=== PATIENT | female | born 1965 | race Caucasian/White ===

== ENCOUNTER 2018-03-05 16:01 | Inpatient (IN) | payer MEDICAID, OTHER ==
[~2018-03-05] VITALS: Ht 170.2 cm; Wt 154.0 kg
[~2018-03-05 16:01] MED LIST: CLON-570 PO; FLUO-191 PO; HYDR25TA PO; IMAT100T PO; LOSA50TA37 PO; METF500T6 PO; NYST15OI TP; OXYB5 PO; SITA25 PO
[2018-03-05 17:03] LABS: EOSINOPHILS % (AUTO) 2.3 % (1.0-6.0); HEMATOCRIT 39.3 % (36-46); HEMOGLOBIN 13.2 g/dL (12.0-16.0); LYMPHOCYTES # (AUTO) 2.6 K/uL (1.0-4.8); LYMPHOCYTES % (AUTO) 41.2 % (22.0-44.0); MEAN CORPUSCULAR HEMOGLOBIN 29.5 pg (26.0-34.0); MEAN CORPUSCULAR HGB CONC 33.7 G/dL (31.0-37.0); MEAN CORPUSCULAR VOLUME 88 fL (80-100); MONOCYTES # (AUTO) 0.5 K/uL (0.1-1.0); MONOCYTES % (AUTO) 7.6 % (2.0-9.0); NEUTROPHILS % (AUTO) 47.9 % (40.0-70.0); PLATELET COUNT (AUTO) 214 K/uL (150-450); RED BLOOD CELL COUNT(AUTO) 4.48 MIL/uL (4.00-5.20); RED CELL DISTRIBUTION WIDTH 14.9 % (11.5-14.5)
[2018-03-05 17:12] LABS: ANION GAP 9 mmol/L (8-16); CALCIUM, TOTAL 8.8 mg/dL (8.8-10.5); CARBON DIOXIDE 29 mmol/L (22-29); CHLORIDE 103 mmol/L (98-107); CREATININE 0.79 mg/dL (0.60-1.30); GLOMERULAR FILTR. RATE CALC > 60 mL/min (>60); GLUCOSE,RANDOM 94 mg/dL (70-110); POTASSIUM 3.8 mmol/L (3.5-5.1); SODIUM SERUM 141 mmol/L (136-145); UREA NITROGEN, BLOOD 19 mg/dL (7-18)
[2018-03-05 17:20] LABS: ALANINE AMINOTRANSFERASE 23 U/L (12-78); ALBUMIN 3.5 g/dL (3.4-5.0); ALKALINE PHOSPHATASE 176 U/L (46-116); ASPARTATE AMINOTRANSFERASE 20 U/L (15-37); BILIRUBIN,TOTAL 0.4 mg/dL (0.1-1.0); TOTAL PROTEIN, SERUM 7.3 g/dL (6.4-8.2)
[2018-03-05] MEDS ORDERED: LORazepam 2 MG TABLET PO PRN (20:45)
[2018-03-05] MEDS ORDERED: HALOPERIDOL 5 MG TABLET PO PRN (20:45)
[2018-03-05] MEDS ORDERED: ZOLPIDEM TARTRATE 10 MG TABLET PO PRN (20:45)
[2018-03-05 21:02] LABS: AMPHET/METH SCREEN,URINE POSITIVE (NEGATIVE); BARBITURATE SCREEN, URINE NEGATIVE (NEGATIVE); BENZODIAZEPINES SCREEN,URINE NEGATIVE (NEGATIVE); CANNABINOID SCREEN,URINE NEGATIVE (NEGATIVE); COCAINE SCREEN,URINE NEGATIVE (NEGATIVE); METHADONE SCREEN, URINE NEGATIVE (NEGATIVE); OPIATE SCREEN,URINE NEGATIVE (NEGATIVE)
[2018-03-05 21:03] LABS: PHENCYCLIDINE SCREEN,URINE NEGATIVE (NEGATIVE)
[2018-03-05 21:26] VITALS: BP 136/83
[2018-03-05] MEDS ORDERED: LOPERAMIDE HCL 2 MG CAPSULE PO PRN (22:30)
[2018-03-05] MEDS ORDERED: CloNIDine HCL 0.1 MG TABLET PO PRN (22:30)
[2018-03-05] MEDS ORDERED: BENZOCAINE/MENTHOL LOZENGE MM PRN (22:30)
[2018-03-05] MEDS ORDERED: BACITRACIN 28.4 GM OINTMENT TP PRN (22:30)
[2018-03-05] MEDS ORDERED: IBUPROFEN 600 MG TABLET PO PRN (22:30)
[2018-03-05] MEDS ORDERED: ONDANSETRON HCL 4 MG TABLET PO PRN (22:30)
[2018-03-05] MEDS ORDERED: ALBUTEROL SULFATE HFA 90 MCG/PUFF 8 GM INHALER IH PRN (22:30)
[2018-03-05] MEDS ORDERED: MAGNESIUM HYDROXIDE SUSPENSION 30 ML UDCUP PO PRN (22:30)
[2018-03-05] MEDS ORDERED: MAG HYDROX/AL HYDROX/SIMETH ES 30 ML SUSPENSION UDCUP PO PRN (22:30)
[2018-03-05] MEDS ORDERED: ACETAMINOPHEN 325 MG TABLET PO PRN (22:30)
[2018-03-05] MEDS ORDERED: PETROLATUM,WHITE 71 GM JELLY TP PRN (22:30)
[2018-03-06 06:33] LABS: GLUCOMETER DEV NAME(LOC) 3EX 1; GLUCOSE,POINT OF CARE 111 MG/DL (70-110)
[2018-03-06] MEDS: MetFORMIN HCL 500 MG TABLET PO SCH (07:04)
[2018-03-06] MEDS ORDERED: IMATINIB MESYLATE 100 MG TAB PO SCH (07:30)
[2018-03-06 09:00] VITALS: BP 119/73
[2018-03-06] MEDS: CloNIDine HCL 0.1 MG TABLET PO SCH (09:29)
[2018-03-06] MEDS: OMEPRAZOLE 20 MG CAPSULE PO SCH (09:29)
[2018-03-06] MEDS: HYDROCHLOROTHIAZIDE 25 MG TABLET PO SCH (09:29)
[2018-03-06] MEDS: LOSARTAN POTASSIUM 50 MG TABLET PO SCH (09:30)
[2018-03-06] MEDS: SitaGLIPtin PHOSPHATE 25 MG TABLET PO SCH (09:30)
[2018-03-06] MEDS: NYSTATIN 30 GM CREAM TP SCH (09:30)
[2018-03-06] MEDS: OXYBUTYNIN CHLORIDE 5 MG TABLET PO SCH ×2 (09:30→17:33)
[2018-03-06] MEDS: DOCUSATE SODIUM 100 MG CAPSULE PO SCH (09:30)
[2018-03-06 12:09] LABS: GLUCOMETER DEV NAME(LOC) 3EX 1; GLUCOSE,POINT OF CARE 102 MG/DL (70-110)
[2018-03-06] MEDS: ESCITALOPRAM OXALATE 10 MG TABLET PO SCH (12:59)
[2018-03-06 16:53] LABS: GLUCOMETER DEV NAME(LOC) 3EX 1; GLUCOSE,POINT OF CARE 122 MG/DL (70-110)
[2018-03-06 17:08] VITALS: BP 98/62
[2018-03-06 21:18] LABS: GLUCOMETER DEV NAME(LOC) 3EX 1; GLUCOSE,POINT OF CARE 123 MG/DL (70-110)
[2018-03-07 05:43] LABS: GLUCOMETER DEV NAME(LOC) 3EX 1; GLUCOSE,POINT OF CARE 120 MG/DL (70-110)
[2018-03-07] MEDS: MetFORMIN HCL 500 MG TABLET PO SCH (06:41)
[2018-03-07 06:51] LABS: HEMOGLOBIN A1C 6.9 % (4.5-6.2)
[2018-03-07 07:52] LABS: CHOL/HDL RATIO 3.3 (3.9-5.7); FREE T4 (FREE THYROXINE) 1.08 ng/dL (0.76-1.46); THYROID STIMULATING HORMONE 0.84 uIU/mL (0.36-3.74)
[2018-03-07 09:00] VITALS: BP 103/71
[2018-03-07] MEDS: HYDROCHLOROTHIAZIDE 25 MG TABLET PO SCH (09:15)
[2018-03-07] MEDS: OMEPRAZOLE 20 MG CAPSULE PO SCH (09:15)
[2018-03-07] MEDS: ESCITALOPRAM OXALATE 10 MG TABLET PO SCH (09:17)
[2018-03-07] MEDS: OXYBUTYNIN CHLORIDE 5 MG TABLET PO SCH ×2 (09:17→17:05)
[2018-03-07] MEDS: SitaGLIPtin PHOSPHATE 25 MG TABLET PO SCH (09:17)
[2018-03-07] MEDS: DOCUSATE SODIUM 100 MG CAPSULE PO SCH (09:17)
[2018-03-07] MEDS: CloNIDine HCL 0.1 MG TABLET PO SCH (09:18)
[2018-03-07] MEDS: LOSARTAN POTASSIUM 50 MG TABLET PO SCH (09:18)
[2018-03-07] MEDS: NYSTATIN 30 GM CREAM TP SCH (09:19)
[2018-03-07 11:52] LABS: GLUCOMETER DEV NAME(LOC) 3EX 1; GLUCOSE,POINT OF CARE 107 MG/DL (70-110)
[2018-03-07 17:03] LABS: GLUCOMETER DEV NAME(LOC) 3EX 1; GLUCOSE,POINT OF CARE 98 MG/DL (70-110)
[2018-03-07 19:25] VITALS: BP 94/47
[2018-03-07 21:23] LABS: GLUCOMETER DEV NAME(LOC) 3EX 1; GLUCOSE,POINT OF CARE 125 MG/DL (70-110)
[2018-03-08 06:28] LABS: GLUCOMETER DEV NAME(LOC) 3EX 1; GLUCOSE,POINT OF CARE 104 MG/DL (70-110)
[2018-03-08] MEDS: MetFORMIN HCL 500 MG TABLET PO SCH (06:59)
[2018-03-08] MEDS: HYDROCHLOROTHIAZIDE 25 MG TABLET PO SCH (10:06)
[2018-03-08] MEDS: SitaGLIPtin PHOSPHATE 25 MG TABLET PO SCH (10:06)
[2018-03-08] MEDS: ESCITALOPRAM OXALATE 10 MG TABLET PO SCH (10:07)
[2018-03-08] MEDS: OMEPRAZOLE 20 MG CAPSULE PO SCH (10:07)
[2018-03-08] MEDS: CloNIDine HCL 0.1 MG TABLET PO SCH (10:07)
[2018-03-08] MEDS: LOSARTAN POTASSIUM 50 MG TABLET PO SCH (10:07)
[2018-03-08] MEDS: OXYBUTYNIN CHLORIDE 5 MG TABLET PO SCH (10:07)
[2018-03-08] MEDS: DOCUSATE SODIUM 100 MG CAPSULE PO SCH (10:08)
[2018-03-08] MEDS: NYSTATIN 30 GM CREAM TP SCH (10:13)
[2018-03-08] MEDS ORDERED: ESCI10TA54 PO (13:15)
[2018-03-08] MEDS ORDERED: OMEP20 PO (14:02)
[2018-03-08] MEDS ORDERED: DSS100 PO (14:03)
[2018-03-08 15:12] VITALS: BP 123/79
== END 2018-03-08 17:00 | disposition home or self-care (01) | DRG 751 ==
LOC: EMS 16:01 → 3EI 20:52
DX: F33.2 Major depressive disorder, recurrent severe without psychotic features (principal); C95.90 Leukemia, unspecified not having achieved remission; R45.851 Suicidal ideations; E66.01 Morbid (severe) obesity due to excess calories; F17.210 Nicotine dependence, cigarettes, uncomplicated; I10 Essential (primary) hypertension; E78.00 Pure hypercholesterolemia, unspecified; E11.9 Type 2 diabetes mellitus without complications; F15.10 Other stimulant abuse, uncomplicated; M19.90 Unspecified osteoarthritis, unspecified site; K59.00 Constipation, unspecified; R32 Unspecified urinary incontinence; F41.9 Anxiety disorder, unspecified; G47.00 Insomnia, unspecified; Z88.5 Allergy status to narcotic agent; Z79.899 Other long term (current) drug therapy; Z79.84 Long term (current) use of oral hypoglycemic drugs; Z68.43 Body mass index [BMI] 50.0-59.9, adult
CPT/HCPCS: 83036; 84439; 84443; 99285; 99406; G0480